=== PATIENT | male | born 1960 | race Caucasian/White ===

== ENCOUNTER → 2019-03-01 | Outpatient (CLI) | payer BC, SELFPAY ==
[2018-02-08 15:47] VITALS: BMI 30.5
--- NOTE | 2019-03-01 13:59 | ECHOD_ITS ---
Reason For Study: Palpitations Procedure This was a 2D Doppler, Color Flow transthoracic echocardiogram. Exam performed in department. Left Ventricle Normal LV size. Left ventricular systolic function is normal. The estimated ejection fraction is 60 %. Transmitral doppler flow suggestive of impaired relaxation of left ventricle. No regional wall motion abnormalities noted. Right Ventricle Normal RV size. Normal systolic function. Atria Normal left atrium. Normal right atrium. No doppler evidence for ASD. Mitral Valve There is no mitral annular calcification. Mild mitral valve prolapse, posterior leaflet. Mild (1+) mitral valve insufficiency. Tricuspid Valve Normal tricuspid valve. Trivial tricuspid valve insufficiency. Aortic Valve Trisinus/trileaflet aortic valve. Normal aortic valve. Pulmonic Valve The pulmonic valve is not well visualized. Great Vessels Normal sized aortic root. Pericardium/Pleural No pericardial effusion. MMode/2D Measurements & Calculations LVIDd: 4.8 cm IVSd: 1.3 cm Ao root diam: 3.4 cm LVIDs: 3.1 cm LVPWd: 0.97 cm LA dimension: 3.8 cm RVDd: 3.8 cm FS: 35.9 % LAV(MOD-bp): 61.4 ml LA A4 area: 19.9 cm2 RA A4 area: 16.7 cm2 LAV(MOD-bp) Indexed: 29.1 ml/m2 LAV(MOD-sp2): 64.5 ml LAV(MOD-sp4): 51.4 ml Time Measurements MV dec time: 0.26 sec Doppler Measurements & Calculations MV E max terry: 55.0 cm/sec Lat Peak E' Terry: 13.4 cm/sec Med Peak E' Terry: 7.8 cm/sec MV A max terry: 59.6 cm/sec E/E' lat: 4.1 E/E' med: 7.0 MV E/A: 0.92 MV V2 max: 72.3 cm/sec MV P1/2t max terry: 62.6 cm/sec Ao V2 max: 121.5 cm/sec MV max P.1 mmHg MV P1/2t: 120.0 msec Ao max P.9 mmHg MV V2 mean: 42.8 cm/sec MV dec slope: 152.6 cm/sec2 MV mean P.84 mmHg MVA(P1/2t): 1.8 cm2 MV V2 VTI: 22.2 cm LV V1 max: 86.6 cm/sec MR max terry: 498.9 cm/sec PA V2 max: 105.9 cm/sec LV V1 max P.0 mmHg MR max P.6 mmHg Interpretation Summary Left ventricular systolic function is normal. The estimated ejection fraction is 60 %. Mild mitral valve prolapse, posterior leaflet Mild (1+) mitral valve insufficiency. Trivial tricuspid valve insufficiency. Transmitral doppler flow suggestive of impaired relaxation of left ventricle Ordering Physician: Matthew Reid Referring Physician: Ervin Pascual Performed By: Romulo Nicole RCS
== END | disposition home or self-care (01) ==
LOC: CVS 13:59
PROVIDERS: Family Provider Family Medicine; PCP Family Medicine; Referring Provider Internal Medicine Cardiovascular Disease; Visit Provider Internal Medicine Cardiovascular Disease
DX: I34.1 Nonrheumatic mitral (valve) prolapse (principal); I49.3 Ventricular premature depolarization
CPT/HCPCS: 93306

== ENCOUNTER 2020-08-28 14:52 | Outpatient (RCR) | payer BC, SELFPAY ==
[2020-04-09 15:29] VITALS: BMI 29.9
[2020-08-28] MEDS: COVID-19 VACC, MRNA(PFIZER)/PF 30 MCG/0.3 ML SYRINGE IM (08:59)
[2020-09-18] MEDS: COVID-19 VACC, MRNA(PFIZER)/PF 30 MCG/0.3 ML SYRINGE IM (08:56)
== END 2020-11-20 23:59 ==
LOC: IMMUN 14:52
PROVIDERS: PCP Family Medicine; Referring Provider Family Medicine; Visit Provider Family Medicine
DX: Z23 Encounter for immunization (principal)
CPT/HCPCS: 0001A; 0002A; 91300

== ENCOUNTER → 2022-05-30 | Outpatient (CLI) | payer BC, SELFPAY ==
--- NOTE | 2022-05-30 14:49 | ECHOD_ITS ---
Reason For Study: MVP Procedure This was a 2D Doppler, Color Flow transthoracic echocardiogram. The exam was of adequate technical quality. Exam performed in department. Left Ventricle Normal LV size. Left ventricular systolic function is normal. The estimated ejection fraction is 60 %. No evidence for diastolic dysfunction. No regional wall motion abnormalities noted. Right Ventricle Normal RV size. Normal systolic function. Atria The left atrium is mildly enlarged. Normal right atrium. No doppler evidence for ASD. Mitral Valve There is no mitral annular calcification. The mitral valve chordae are thickened and/or calcified. Mild mitral valve prolapse, posterior leaflet. Mild (1+) mitral valve insufficiency. Tricuspid Valve Normal tricuspid valve. Trivial tricuspid valve insufficiency. Right ventricular systolic pressure estimated to be 20 mmHg. Aortic Valve Trisinus/trileaflet aortic valve. Normal aortic valve. Pulmonic Valve The pulmonic valve is not well visualized. Trivial pulmonic valve insufficiency. Great Vessels Normal sized aortic root. Pericardium/Pleural No pericardial effusion. MMode/2D Measurements & Calculations LVIDd: 4.9 cm IVSd: 1.1 cm Ao root diam: 3.7 cm LVIDs: 3.2 cm LVPWd: 1.1 cm LA dimension: 4.6 cm RVDd: 3.6 cm FS: 33.5 % LAV(MOD-bp): 63.0 ml LA A4 area: 20.3 cm2 RA A4 area: 14.8 cm2 LAV(MOD-bp) Indexed: 29.2 ml/m2 LAV(MOD-sp2): 62.0 ml LAV(MOD-sp4): 58.2 ml Time Measurements MV dec time: 0.20 sec Doppler Measurements & Calculations MV E max terry: 55.9 cm/sec Lat Peak E' Terry: 9.9 cm/sec Med Peak E' Terry: 7.6 cm/sec MV A max terry: 71.3 cm/sec E/E' lat: 5.6 E/E' med: 7.3 MV E/A: 0.78 MV V2 max: 73.5 cm/sec MV dec slope: 283.2 cm/sec2 Ao V2 max: 135.2 cm/sec MV max P.2 mmHg Ao max P.3 mmHg MV V2 mean: 47.4 cm/sec Ao V2 mean: 91.6 cm/sec MV mean P.97 mmHg Ao mean P.9 mmHg MV V2 VTI: 24.8 cm Ao V2 VTI: 28.1 cm AV (velocity ratio): 0.80 LV V1 max: 108.5 cm/sec PA V2 max: 97.4 cm/sec TR max terry: 205.4 cm/sec LV V1 max P.7 mmHg TR max P.9 mmHg LV V1 mean P.3 mmHg LV V1 mean: 70.6 cm/sec LV V1 VTI: 22.5 cm ECHO/Echo Complete Interpretation Summary Left ventricular systolic function is normal. The estimated ejection fraction is 60 %. The left atrium is mildly enlarged. Mild mitral valve prolapse, posterior leaflet The mitral valve chordae are thickened and/or calcified. Mild (1+) mitral valve insufficiency. Trivial tricuspid valve insufficiency. Trivial pulmonic valve insufficiency. Right ventricular systolic pressure estimated to be 20 mmHg. No evidence for diastolic dysfunction. Ordering Physician: Matthew Reid Referring Physician: Ervin Pascual Performed By: Yareli Doyle, VIKRAM, RVT
== END | disposition home or self-care (01) ==
LOC: CVS 14:48
PROVIDERS: PCP Family Medicine; Referring Provider Internal Medicine Cardiovascular Disease; Visit Provider Internal Medicine Cardiovascular Disease
DX: I34.1 Nonrheumatic mitral (valve) prolapse (principal); I49.3 Ventricular premature depolarization; R00.2 Palpitations
CPT/HCPCS: 93306

== ENCOUNTER → 2022-10-13 | Outpatient (CLI) | payer BC, SELFPAY | END | disposition home or self-care (01) | LOC: LABSPEC 09:57 | PROVIDERS: PCP Family Medicine; Referring Provider Dermatology; Visit Provider Dermatology | DX: A69.20 Lyme disease, unspecified (principal) ==

== ENCOUNTER 2023-05-29 14:36 | Emergency (ER) | payer BC, SELFPAY ==
[2023-05-29 14:38] VITALS: BP 176/96; PULSE 100; RESP 18; TEMP 37.2; O2SAT 99; BMI 32.1
--- NOTE | 2023-05-29 14:51 | EDS_ITS ---
HPI History of Present Illness Chief Complaint: Complaint Detail of Chief Complaint: Blood and urine Informant: patient Narrative Narrative: Patient presents with blood in urine that started this afternoon. Patient states he fell like he needed to urinate and urinated nothing but blood. Denies dysuria urgency or frequency. He denies recent illness. He denies falls. He denies any pain in his back. Patient had a kidney stone 15 years ago but not since. [facility] Medical History (Updated 05/29/23 @ 16:[address] Jaylene Killian, ) Asthma Nonrheumatic mitral (valve) prolapse Palpitations Premature ventricular contraction Home Medications albuterol sulfate 90 mcg/actuation aerosol inhaler 1 puff inhalation Q4H PRN PRN Shortness Of Breath 02/10/16 [History Last Taken Unknown] aspirin 81 mg chewable tablet 81 mg PO .3XWEEK 02/08/18 [History Last Taken Unknown] fluticasone 250 mcg-salmeterol 50 mcg/dose blistr powdr for inhalation 1 ea inhalation DAILY 04/09/20 [History Last Taken Unknown] losartan 25 mg tablet 25 mg PO DAILY 05/19/22 [History Last Taken Unknown] multivitamin 1 tab PO DAILY 05/19/22 [History Last Taken Unknown] sulfamethoxazole 800 mg-trimethoprim 160 mg tablet 1 tab PO BID #6 TABLETS 05/29/23 [Rx Last Taken Unknown] Allergy/AdvReac Type Severity Reaction Status Date / Time No Known Allergies Allergy Verified 05/29/23 19:59 Family History Father CAD (coronary artery disease) Cardiac pacemaker in situ Mother CAD (coronary artery disease) Cardiac pacemaker in situ Sister SVT (supraventricular tachycardia) Social History Smoking Status: Never smoker alcohol intake: never substance use type: does not use ROS ROS ED Review of Systems ROS Unobtainable: other Constitutional Constitutional ED: Reports lethargy; Denies chills, fever(s), sweats or weight loss Eyes Eyes: Denies blurry vision, change in vision or diplopia ENT ENT ED: Denies rhinorrhea or sore throat Cardiovascular Cardiovascular: Denies chest pain, orthopnea or racing heartbeat Respiratory/Chest Respiratory/Chest: Denies cough, dyspnea, dyspnea on exertion, orthopnea or sputum Gastrointestinal Gastrointestinal: Denies abdominal pain, diarrhea, nausea or vomiting Genitourinary Genitourinary ED: Reports hematuria; Denies dysuria or urinary frequency Musculoskeletal Musculoskeletal: Denies arthralgias, back pain, myalgias or neck pain Integumentary Denies abscess, Abrasions or rash Neurologic Neurologic: Denies headache(s) or weakness Psychiatric Psychiatric: Denies anxiety, depression or suicidal thoughts Endocrine Endocrinology: Denies polydipsia, polyphagia or polyuria Hematologic/Lymphatic Hematologic/Lymphatic: Denies easy bleeding, easy bruising or lymphadenopathy Allergic/Immunologic Allergic/Immunologic ED: Denies mouth swelling, tongue swelling or urticaria EXAM Physical Exam Const Vital Signs: 05/29/23 14:38 05/29/23 17:13 Temperature 99 F Temperature Source Temporal Pulse Rate 100 81 Respiratory Rate 18 16 Blood Pressure 176/96 H 147/84 H Blood Pressure Mean 122 105 Pulse Ox 99 98 Oxygen Delivery Method Room Air Positive well nourished and well developed General Appearance ED: well developed and NAD HEENT Reports TM's clear and moist mucous membranes normocephalic and atraumatic; Negative for trauma or tenderness Tympanic Membrane ED: Yes TM's clear Eyes PERRL and EOMs intact bilaterally General Eye ED: Negative for pale conjunctiva or scleral icterus Neck no lymphadenopathy, supple and no JVD General: Negative for tenderness Chest Wall inspection of chest normal and palpation of chest normal Chest: Negative for tenderness Resp normal respiratory effort and clear to auscultation bilaterally Effort and Inspection: Negative for respiratory distress or pain with movement Auscultation: Negative for rhonchi, wheezes or diminished lung sounds Cardio regular rate, regular rhythm, S1 normal heart sound, S2 normal heart sound and no murmurs Peripheral Pulses: pulses 2+ throughout GI normal to inspection, nondistended, normoactive bowel sounds, soft to palpation, non-tender, non-distended and no masses Back/Spine no CVA tenderness and no thoracic nor lumbar tenderness Extremity normal to inspection General Extremety ED: Negative for edema General Extremity: Negative for edema Neuro oriented x3, CN's II-XII intact bilaterally, no sensory deficits noted and gait normal Sensorium / Orientation: awake, alert, oriented to person, oriented to place and oriented to time Motor Exam: strength 5/5 throughout and strength abnormal Psych mental status grossly normal Skin no rashes or lesions noted and no wounds MDM MDM MDM Narrative Medical decision making narrative: Patient with painless hematuria. IV line established. CBC with differential, 6.2 with hemoglobin 16 platelet count of 92,000. Chemistries unremarkable. Urinalysis positive for 4 greater than 100 RBCs but no signs of infection. CT scan of the abdomen and pelvis with IV contrast showed a 5 x 3.4 x 3.1 cm for filling defect in the bladder which may reflect a blood clot or malignancy or infectious process. Discussed case with urology Dr. Pro Smith who was able to look at the CT scan and he is concerned about a tumor. Discussed results with patient. He was able to void in the department without difficulty. This point is advised to discontinue his aspirin until he follows up with urology. Patient will need further workup for suspected bladder malignancy. Will start him on Bactrim empirically for 3 days given the hematuria and the low-grade temperature here. Patient advised to return if unable to void or persistent heavy bleeding or if condition should worsen anyway. Lab Data Labs: Laboratory Results - last 24 hr 05/29/23 15:00 WBC 6.2 RBC 5.32 Hgb 16.1 Hct 46.7 MCV 87.8 MCH 30.3 MCHC 34.5 RDW Std Deviation 40.2 RDW Coeff of [place] 12.6 Plt Count 92 L MPV 10.8 Immature Gran % (Auto) 0.600 Neut % (Auto) 63.7 Lymph % (Auto) 24.2 [place] % (Auto) 9.0 Eos % (Auto) 1.9 Baso % (Auto) 0.6 Absolute Neuts (auto) 3.9 Absolute Lymphs (auto) 1.50 Nucleated RBC % 0 Differential Comment SEE COMMENT Platelet Estimate MOD DEC RBC Morphology NORM C+C Anisocytosis RARE Sodium 139 Potassium 3.3 L Chloride 106 Carbon Dioxide 28.0 Anion Gap 5 BUN 17 Creatinine 0.90 Estim Creat Clear Calc 86.74 Est GFR (MDRD) Af Amer 109 Est GFR (MDRD) Non-Af 90 BUN/Creatinine Ratio 18.8 Glucose 109 H Calcium 8.7 Urine Color Red Urine Clarity Turbid Urine pH 7.[address] 1.015 Urine Protein 500 H Urine Glucose (UA) Normal Urine Ketones Negative Urine Occult Blood 150 H Urine Nitrite Negative Urine Bilirubin Negative Urine Urobilinogen Normal Ur Leukocyte Esterase Negative Urine RBC > 100 SEEN Urine WBC 0-5 SEEN Ur Squamous Epith Cells 5-10 SEEN Amorphous Sediment 1+ PHOS Urine Bacteria 0 SEEN Urine Mucus 0 SEEN Radiography Diagnostic Testing: Clinical Impression(s) from Imaging Studies Abdomen/Pelvis CT 05/29/23 16:02 IMPRESSION: 5.2 x 3.4 x 3.1 cm filling defect within the urinary bladder which may reflect a blood clot, a malignancy and/or an infectious process. 4 mm nonobstructing left renal calculus. Fatty infiltration of the liver. Electronically Signed: Carina Carlisle MD at 16:20 EST , Discharge Plan Triage Chief Complaint: Complaint ED Provider: Jaylene Killian Dx/Rx/DC Orders Clinical Impression: Hematuria, Bladder mass Instructions: ED Hematuria Prescriptions: New sulfamethoxazole-trimethoprim [sulfamethoxazole-trimethoprim] 800-160 mg tablet 1 tab PO BID Qty: 6 0RF No Action losartan 25 mg tablet 25 mg PO DAILY multivitamin Tablet 1 tab PO DAILY albuterol sulfate 1 INHALER inhaler 1 puff INHALATION Q4H PRN PRN (Reason: Shortness Of Breath) aspirin 81 mg tablet,chewable 81 mg PO .3XWEEK fluticasone propion-salmeterol 250-50 mcg/dose blister with device 1 ea INHALATION DAILY Primary Care Provider: Jacob Pascual Referrals: Jacob Pascual MD [Primary Care Provider] - Sabino Valenzuela MD [Med Staff - Active Staff] - 3-5 Days Disposition Disposition: Home, Self Care Discharge Date/Time: 05/29/23 17:15
[2023-05-29] MEDS: 0.9% Normal Saline (1000mL) 1,000 ML 150 ML IV (15:09)
[2023-05-29 15:21] LABS: Bacteria 0 SEEN /hpf (None Seen); Mucous, Urine 0 SEEN /hpf (<or=2+)
[2023-05-29 15:28] LABS: Absolute Neutrophil Count 3.9 X10^3/uL (2.0-7.7); Basophil# 0.04 X10^3/uL; Basophil% 0.6 % (0-1); Eosinophil# 0.12 X10^3/uL; Eosinophils% 1.9 % (0-5); Hematocrit 46.7 % (40-54); Hemoglobin 16.1 g/dL (13.0-16.5); Lymphocyte % 24.2 % (19-41); Mean Corp Hgb Conc 34.5 g/dL (32-36); Mean Corpuscular Hgb 30.3 pg (27.0-32.0); Mean Corpuscular Volume 87.8 fL (80-94); Mean Platelet Vol. 10.8 fl (6.2-12.0); Monocyte# 0.56 X10^3/uL; NRBC Flagged by Analyzer 0 % (0-5); Neutrophil # 3.94 X10^3/uL (2.7-7.7); Neutrophil % 63.7 % (47-70); POSITIVE COUNT YES; Platelet Count 92 K/mm3 (150-450); RBC Distribution Width CV 12.6 % (11.6-14.6); RBC Distribution Width SD 40.2 fl (35.1-43.9); Red Blood Count 5.32 M/mm3 (4.6-6.2); White Blood Count 6.2 K/mm3 (4.4-11.0)
[2023-05-29 15:35] LABS: Differential Indicated SCAN CRITERIA MET
[2023-05-29 15:36] LABS: Color, Urine Red (Yellow); Glucose, Dipstick Normal (Normal); Ketone-Dipstick Negative (Negative); Leukocyte Esterase-Dipstick Negative /ul (Negative); Nitrite-Dipstick Negative (Negative); Occult Blood-Urine 150 /ul (Negative); Protein-Dipstick 500 mg/dl (Negative); Specific Gravity, Urine 1.015 (1.002-1.030); Urine Bilirubin Dipstick Negative (Negative); Urine Clarity Turbid (Clear); Urine Urobilinogen Normal (Normal)
[2023-05-29 15:44] LABS: Red Blood Cells-Urine > 100 SEEN /hpf (0-5); Squamous Epithelial Cells - UA 5-10 SEEN /hpf (0-5); White Blood Cells 0-5 SEEN /hpf (0-5)
[2023-05-29 15:45] LABS: Amorphous Sediment 1+ PHOS
[2023-05-29 15:52] LABS: Anisocytosis RARE; Platelet Estimate MOD DEC (ADEQ); Red Cell Morphology NORM C+C NORMAL (NORM C&C)
[2023-05-29 15:53] LABS: Anion Gap 5 (5-15); BUN 17 mg/dL (7-18); BUN/Creat Ratio 18.8 RATIO (10-20); Calcium,Total 8.7 mg/dL (8.5-10.1); Chloride 106 mmol/L (98-107); EST Glomerular Filtration Rate 90 mL/min (>60); Est Glom Filt Rate - Afr Amer 109 mL/min (>60); Estimated Creatinine Clearance 86.74 ml/min; Glucose 109 mg/dL (74-106); Potassium 3.3 mmol/L (3.5-5.1); Sodium Level 139 mmol/L (136-145)
--- NOTE | 2023-05-29 16:02 | CT_ITS ---
STUDY: CT ABDOMEN AND PELVIS WITH CONTRAST - URINARY TRACT REASON FOR EXAM: Male, 62 years old. Painless hematuria RADIATION DOSAGE (If Supplied By Facility): CTDIvol = ( 17.59 ) mGy, DLP = ( 2277.48 ) mGycm TECHNIQUE: IV 100mL Isovue-300 was administered. Transaxial images were obtained from the dome of the diaphragm to the symphysis pubis in the arterial and excretory phases. Multiplanar coronal and sagittal images were reformatted. Individualized Dose Optimization Techniques Were Used For This CT. COMPARISON: No relevant prior comparison study available FINDINGS: The visualized lung bases are unremarkable. The visualized portions of the heart are within normal limits. There is decreased attenuation of the liver consistent with steatosis. Normal gallbladder and extrahepatic biliary system. Normal spleen. Normal pancreas. Normal bilateral adrenal glands. Normal visualized stomach. Normal small intestine. Normal colon. The appendix is visualized and appears normal. Normal abdominal aorta. No retroperitoneal adenopathy. Normal right kidney. There is a nonobstructing 4 mm left renal calculus. Within the posterior urinary bladder slightly left of midline there is a 5.2 x 3.4 x 3.1 cm high attenuation round focus. Normal abdominal wall. There are bilateral L5 pars defects associated with a grade 2 anterior spondylolisthesis of L5 on S1. CT/Abdomen/Pelvis W IV Cont ONLY IMPRESSION: 5.2 x 3.4 x 3.1 cm filling defect within the urinary bladder which may reflect a blood clot, a malignancy and/or an infectious process. 4 mm nonobstructing left renal calculus. Fatty infiltration of the liver. Electronically Signed: Carina Carlisle MD at 16:20 EST ,
[2023-05-29] MEDS: Smz/Tmp Ds Tablet 1 TABLET PO (16:50)
[2023-05-29 17:13] VITALS: BP 147/84; PULSE 81; RESP 16; O2SAT 98
== END 2023-05-29 17:15 | disposition home or self-care (01) ==
PROVIDERS: Emergency Provider Emergency Medicine; PCP Family Medicine; Visit Provider Emergency Medicine
DX: N32.9 Bladder disorder, unspecified (principal); R31.9 Hematuria, unspecified; R50.9 Fever, unspecified; J45.909 Unspecified asthma, uncomplicated
CPT/HCPCS: 74177; 80048; 81001; 85025; 96360; 96361; 99282; J7030; Q9967

== ENCOUNTER 2023-06-03 05:53 | Day surgery (SDC) | payer BC, SELFPAY ==
[2023-06-03] VITALS (8 sets, daily range): BP systolic 111–128; BP diastolic 68–82; PULSE 72–79; RESP 16; TEMP 36.2–36.7; O2SAT 92–97; BMI 30.9
--- NOTE | 2023-06-03 | BLB_PTH ---
PATIENT: CRICKET KHAN LOC: [facility] U#:[id number] AGE/SX: 62/M ROOM: RE06/03/[address]: Dr. Sabino Valenzuela MD : [id number] BED: DIS: 06/03/2023 SPEC #: [id number] RECD: 06/03/23 13:52 STATUS: CLAUDETTE REQ #: [id number] KAYLEE: 06/03/23 00:[address]: Sabino Valenzuela DEPT: SURGICAL PATHOLOGY RECD BY: Carmine Delaney ENTERED: 06/03/23 13:52 SP TYPE: TURB OTHR DR: MD Dr. 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 See cancer summary in the comment section. SJ:rg 06/04/2023 COMMENT BLADDER CANCER (TUR) SUMMARY Procedure: Transurethral resection of bladder tumor (TURBT) Tumor site: Not specified Histologic type: Papillary urothelial carcinoma, noninvasive Associated epithelial lesions: None identified Histologic grade: Low grade (1/3) Tumor configuration: Papillary Muscularis propria presence: No muscularis propria (detrusor muscle) identified. Lymphvascular invasion: Not identified Tumor extension: Noninvasive papillary carcinoma. 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 Case has been reviewed in consultation with Dr. Pham who concurs with the above diagnosis. IDC:AM MICROSCOPIC DESCRIPTION Slides are reviewed. GROSS DESCRIPTION Received in fixative is one container labeled with the patient's name and designated bladder tumor. The specimen consists of multiple irregular fragments of pink-brown soft tissue that in aggregate measure 3.0 x 2.5 x 0.3 cm. The specimen is totally submitted in one cassette. / FABIANA:cem 06/03/2023 TC:0 CPT: 84039
--- NOTE | 2023-06-03 06:01 | EKG12_ITS ---
Test Reason : PRE-OP Blood Pressure : / mmHG Vent. Rate : 073 BPM Atrial Rate : 073 BPM P-R Int : 186 ms QRS Dur : 094 ms QT Int : 360 ms P-R-T Axes : 045 -07 007 degrees QTc Int : 396 ms Normal sinus rhythm Normal ECG When compared with ECG of 10-FEB-2016 13:07, Premature ventricular complexes are no longer Present Confirmed by JAMES GIBBS, PRABHA ([id number]), editor farm journal IZAIAH BECKWITH ([id number]) on 06/05/2023 2:08:52 PM Referred By: Jacob Pascual Confirmed By:PRABHA RAMIREZ MD
[2023-06-03] MEDS: Cefazolin 2 GM in 0.9% Normal Saline (100mL Bag) 100 ML IV (07:30)
[2023-06-03] MEDS: MitoMYcin 40 MG in Syringe 1 EACH 2400 MG INSTILLAT (08:22)
--- NOTE | 2023-06-03 08:23 | DCINST_ITS ---
Discharge Instructions Diet Discharge Diet: No restrictions Activity Discharge Activity: Return to Normal Activity and May Not Drive (while taking narcotic pain medications.) Follow Up Care Please Follow Up With: Sabino Valenzuela MD When: Call [phone] for an appointment Test Results: Test results from this visit will be discussed in further detail at your follow- up appointment, if applicable. Discharge Plan Admission Primary Reason for Your Visit: bladder surgery Attending Provider: Sabino Valenzuela Primary Care Provider: Jacob Pascual Discharge Orders/Prescriptions Prescriptions: New phenazopyridine [Pyridium] 100 mg tablet 100 mg PO TID Qty: 15 0RF ciprofloxacin HCl 500 mg tablet 500 mg PO BID Qty: 10 0RF oxycodone 5 mg tablet 5 mg PO Q6H PRN (Reason: pain) 7 Days Qty: 14 0RF Continued losartan 25 mg tablet 25 mg PO DAILY multivitamin Tablet 1 tab PO DAILY albuterol sulfate 1 INHALER inhaler 1 puff INHALATION Q4H PRN PRN (Reason: Shortness Of Breath) fluticasone propion-salmeterol 250-50 mcg/dose blister with device 1 ea INHALATION DAILY propranolol 20 mg tablet 20 mg PO DAILY Patient Comments: TAKE 1 TABLET BY MOUTH DAILY NEEDED for social speaking and anxiety Referrals / Follow Up: Jacob Pascual MD [Primary Care Provider] - Sabino Valenzuela MD [Med Staff - Active Staff] - Disposition Disposition (needs filled in before D/C Order can be placed): Home, Self Care
--- NOTE | 2023-06-03 08:23 | PCM.HP.STD ---
HPI - General General Date of Service: 06/03/23 Chief Complaint: Large bladder tumor bleeding HPI Narrative CRICKET KHAN, is a 62 M who presents for resection of a large bladder tumor that appears to be bladder cancer [facility] Medical History (Updated 06/01/23 @ 13:09 by Sarahi Oakes) Asthma Back pain Bladder disease Blood disorder Cardiology follow-up encounter CPAP (continuous positive airway pressure) dependence History of echocardiogram History of stress test Hypertension Leg cramps Non-smoker Nonrheumatic mitral (valve) prolapse Palpitations Premature ventricular contraction Home Medications albuterol sulfate 90 mcg/actuation aerosol inhaler 1 puff inhalation Q4H PRN PRN Shortness Of Breath 02/10/16 [History Last Taken Unknown] fluticasone 250 mcg-salmeterol 50 mcg/dose blistr powdr for inhalation 1 ea inhalation DAILY 04/09/20 [History Last Taken Unknown] losartan 25 mg tablet 25 mg PO DAILY 05/19/22 [History Last Taken Unknown] multivitamin 1 tab PO DAILY 05/19/22 [History Last Taken Unknown] propranolol 20 mg tablet 20 mg PO DAILY 06/01/23 [History Last Taken Unknown] ciprofloxacin HCl 500 mg tablet 500 mg PO BID #10 tabs 06/03/23 [Rx Last Taken Unknown] oxycodone 5 mg tablet 5 mg PO Q6H PRN pain 7 days #14 tabs 06/03/23 [Rx Last Taken Unknown] phenazopyridine 100 mg tablet (Pyridium) 100 mg PO TID #15 tabs 06/03/23 [Rx Last Taken Unknown] Allergy/AdvReac Type Severity Reaction Status Date / Time No Known Allergies Allergy Verified 06/01/23 12:56 Family History Father CAD (coronary artery disease) Cardiac pacemaker in situ Mother CAD (coronary artery disease) Cardiac pacemaker in situ Sister SVT (supraventricular tachycardia) Surgical History (Updated 06/01/23 @ 13:07 by Sarahi Oakes) Hx of colonoscopy Social History Smoking Status: Never smoker alcohol intake: never substance use type: does not use Vital Signs Vital Signs Vital Signs: 06/03/23 06:28 06/03/23 06:28 Temperature 97.3 F L Temperature Source Temporal Pulse Rate 78 Respiratory Rate 16 Respiratory Pattern Normal Blood Pressure 128/82 H Blood Pressure Mean 97 Blood Pressure Source Monitor Blood Pressure Position Semi-Fowlers Blood Pressure Location Right Arm Pulse Ox 97 Oxygen Delivery Method Room Air Weight Weight: 98 kg Body Mass Index (BMI) 30.9
--- NOTE | 2023-06-03 08:24 | OP.PCM_ITS ---
Report of Operation Date of Procedure: 06/03/23 Pre-Operative Diagnosis: Large bladder tumor, measuring 5.5 x 3.0 x 4.0 cm in s rajeev Post-Operative Diagnosis: Same Surgery/Procedure Performed:: Transurethral resection of large bladder tumor instillation Mitomycin-C Description of Surgical Findings:: Patient presented to the hospital for treatment of a tumor that was found in the bladder with a very large bladder tumor. Patient understands is possible it may not be able to resect the entire tumor. Patient also understands is possible that the patient may need multiple procedures or more invasive procedures to cure him of this cancer. Patient was taken back to the operating room after smooth induction of anesthesia the patient was placed supine on the table. The patient was placed in dorsolithotomy position. The urethra and genitals prepped and draped in usual sterile fashion. I went into the bladder with a 30 degree lens and a cystoscope was performed and identified the tumor the tumors which was about 5.5 centimeters in size and occupying mostly the left lateral wall of the bladder. I then switched over to the 70 degree lens and inspected the rest of the bladder with a 70 degree lens to make sure there is no other tumors in the bladder and to identify all the tumor locations. The right and left ureteral orifice were identified. The tumor was nont involved in ureteral orifices. I then placed the Olympus bipolar resectoscope with a medium loop into the bladder. I then started resected the tumor and started superficially shaving small little pieces working my way to the base of the tumor. As I went along I then cauterize any bleeders that were encountered during the resection. The tumor pieces were then flushed out of the bladder and continued resecting the tumor until finally I got down to the base of the tumor and the muscle of the bladder was then identified a small little bit of muscle was taken with the resection. The Ellik was used then to evacuate all the tumor pieces out of the bladder. I then cauterized extensively the tumor base and also circumferentially around where the tumor was. Again we made sure to evacuate all the pieces out the bladder. I made sure there was no more bleeding from the base of the bladder and then over the tumor pieces were then evacuated out and sent off as a specimen. After the resection of the entire tumor was completed then treatment with Mitomycin-C was performed. We then placed the catheter in the bladder and the patient was taken back to the PACU in stable condition. Surgeon: Sabino Valenzuela Type of Anesthesia: General Special Medications: Mitomycin C instillation Specimen's removed: bladder tumor Drains: 16 fr wih mitomycin C Admit VTE Documentation VTE Present on Admission: No VTE Mechan Device Prophylaxis: SCD's VTE Pharm Prophylaxis ordered?: No
[2023-06-03] MEDS: Ketorolac 15 MG/ML Vial IV (08:51)
== END 2023-06-03 10:19 | disposition home or self-care (01) ==
LOC: SDC 05:54 → AC 05:55
PROVIDERS: PCP Family Medicine; Referring Provider Family Medicine; Visit Provider Urology
PROC: 0T5B8ZZ Destruction of Bladder, Via Natural or Artificial Opening Endoscopic (ICD-10-PCS; CPT 51720; principal; 2023-06-03 07:20)
DX: D09.0 Carcinoma in situ of bladder (principal); I10 Essential (primary) hypertension; J45.909 Unspecified asthma, uncomplicated; Z79.899 Other long term (current) drug therapy; Z79.51 Long term (current) use of inhaled steroids
CPT/HCPCS: 52240; 00912; 88307; 93005; J7120; J9280; J2405

== ENCOUNTER → 2024-09-19 | Outpatient (CLI) | payer BC, SELFPAY ==
--- NOTE | 2024-09-19 12:34 | MRI_ITS ---
PROCEDURE: PELVIS W/WO CONTRAST ([id number]), 09/19/2024 REASON FOR EXAM: MALIGNANT NEOPLASM LATERAL WALL OF BLADDER, MET DISEASE EVAL. Additionally, elevated PSA is reported by technologist. TECHNIQUE: Multisequence multiplanar MRI pelvis was performed with and without IV contrast. CONTRAST: 19 mL Clariscan COMPARISON: None FINDINGS: Exam limited by suboptimal signal to noise ratio on diffusion and dynamic postcontrast sequences, possibly related to scanning at 1.5 Sandy field strength. Additional variable overall mild motion limitation. Prostate size: 4.7 x 3.6 x 4.1 cm, estimated volume 36 mL. Transition zone: PI-RADS 2 findings. Peripheral Zone: Fairly prominent background changes favorable for prostatitis (PI-RADS 2). *Lesion 1: RIGHT posterior peripheral zone far apex, 1.0 cm (series 8, image 25). *T2 score: 3. *DWI score: 3. *DCE: Negative. *Overall PI-RADS: PI-RADS 3. *Extracapsular extension:No definite extracapsular extension, however, there is capsular abutment of proximally 1 cm which increases the risk of occult early/microscopic extracapsular extension. Neurovascular bundles: Unremarkable. Seminal vesicles: Unremarkable. Bladder: Underdistended and suboptimally evaluated due to underdistention as well as nondedicated technique. Borderline mild wall thickening versus underdistention with mild trabeculation, suggesting chronic bladder outlet obstruction. No definite focal wall thickening or recurrent mass identified. Lymph nodes: LEFT external iliac node, 9 mm short axis. Bones: No frankly destructive or suspicious bony lesions identified. Grade 2 anterolisthesis at L5-S1 with question pars defects, not well evaluated. Other: Trace nonspecific pelvic free fluid. Trace to small LEFT and trace RIGHT hydroceles. MRI/Pelvis W/WO Contrast IMPRESSION: 1. Fairly prominent background changes favorable for prostatitis. Additional 1 .0 cm PI-RADS 3 lesion in the RIGHT posterior peripheral zone far apex. No definite extracapsular extension, however, there i s capsular abutment of proximally 1 cm which increases the risk of occult early/microscopic extracapsular extension. 2. Mild LEFT external iliac lymphadenopathy by PI-RADS criteria. Metastasis ca n not be excluded given the context. Recommend clinical/oncologic follow-up. Comparison early lucas with any available outsid e imaging would be helpful. 3. Limited evaluation of the underdistended bladder. No definite focal wall th ickening or recurrent mass identified. Diffuse mild wall thickening and trabeculation suggesting chronic bladder outlet obstru ction. 4. Trace nonspecific pelvic free fluid. 5. Additional description as above. Reading Location: [id number]
== END | disposition home or self-care (01) ==
LOC: MRI 12:26
PROVIDERS: PCP Family Medicine; Referring Provider Urology; Visit Provider Urology
DX: C67.2 Malignant neoplasm of lateral wall of bladder (principal)
CPT/HCPCS: 72197; A9575; A4216

== ENCOUNTER → 2024-09-23 | Outpatient (CLI) | payer BC, SELFPAY ==
[2024-09-25 04:06] LABS: PSA, Free 0.41 ng/mL; PSA, Free % 24.6 % (.)
== END | disposition home or self-care (01) ==
PROVIDERS: PCP Family Medicine; Referring Provider Urology; Visit Provider Urology
DX: R97.20 Elevated prostate specific antigen [PSA] (principal)
CPT/HCPCS: 36415; 84153; 84154